=== PATIENT | male | born 1960 | race Caucasian/White ===

== ENCOUNTER 2021-01-12 09:44 | Emergency (ER) | payer OTHER ==
--- NOTE | 2021-01-12 10:49 | EDM.PDOC ---
ED HPI GENERAL MEDICAL PROBLEM - General Chief Complaint: ENT Problem Stated Complaint: [id number] RIGHT EAR PLUGGED Time Seen by Provider: 01/12/21 10:47 Source of Information: Reports: Patient History Limitations: Reports: No Limitations - History of Present Illness INITIAL COMMENTS - FREE TEXT/NARRATIVE: 60 y/o M c/o plugged ears for several days. The pt is [place] and began feeling like his ears were plugged adn then developed pn in his R ear today. He denies fever, cough, chills, cp, db, difficulty swallowing, neck pn, abd pn, extremity pn, drugs, etoh. Right Ear Pain Score (Numeric/FACES): 2 Past Medical History - Past Health History Medical/Surgical History: Denies Medical/Surgical History Social & Family History - Family History Family Medical History: No Pertinent Family History - Tobacco Use Tobacco Use Status *Q: Never Tobacco User Second Hand Smoke Exposure: No - Caffeine Use Caffeine Use: Reports: Coffee - Recreational Drug Use Recreational Drug Use: No ED ROS ENT - Review of Systems Review Of Systems: Comprehensive ROS is negative, except as noted in HPI. ED EXAM, ENT - Physical Exam Exam: See Below Exam Limited By: No Limitations General Appearance: Alert, WD/WN, No Apparent Distress Eye Exam: Bilateral Eye: PERRL Ears: TM Obscured by Cerumen (obscured by cerumen bilaterally) Nose: Normal Inspection, Normal Mucousa, No Blood Mouth/Throat: Normal Inspection, Normal Gums, Normal Lips, Normal Oropharynx, Normal Teeth Head: Atraumatic, Normocephalic Neck: Supple, Non-Tender Respiratory/Chest: No Respiratory Distress, Lungs Clear, Normal Breath Sounds Cardiovascular: Normal Peripheral Pulses, Regular Rate, Rhythm Course - Vital Signs Last Recorded V/S: Last Vital Signs Temp 98.3 F 01/12/21 09:48 Pulse 78 01/12/21 09:48 Resp 16 01/12/21 09:48 BP 155/91 H 01/12/21 09:48 Pulse Ox 94 L 01/12/21 09:48 - Re-Assessments/Exams Free Text/Narrative Re-Assessment/Exam: 01/12/21 11:08 The pts ears were irrigated with half ns half hydrogen peroxide. Copious amounts of cerumen were extracted. The pt feels relief in symptoms and his TMs appear normal. The R ear canal is very irritated after the procedure. I have instructed the pt to avoid ear plugs for the next week until his ear canal heals up. Departure - Departure Time of Disposition: 11:10 Disposition: Home, Self-Care 01 Condition: Good Clinical Impression: Cerumen impaction Qualifiers: Laterality: bilateral Qualified Code(s): H61.23 - Impacted cerumen, bilateral - Discharge Information *PRESCRIPTION DRUG MONITORING PROGRAM REVIEWED*: Not Applicable *COPY OF PRESCRIPTION DRUG MONITORING REPORT IN PATIENT MJ: Not Applicable Instructions: Earwax Buildup, Adult Forms: ED Department Discharge Additional Instructions: Use tylenol or motrin for pain as needed. After your ear canal heals up consider using Debrox or mineral oil drops in your ear a few times a month to prevent impaction for recurring. If any new symptoms or concerns develop contact your primary care facility or return to the ER. Sepsis Event Note (ED) - Focused Exam Vital Signs: Vital Signs Temp Pulse Resp BP Pulse Ox 01/12/21 09:48 98.3 F 78 16 155/91 H 94 L
== END 2021-01-12 11:16 | disposition home or self-care (01) ==
LOC: DL.ED 09:44
DX: H61.23 Impacted cerumen, bilateral (principal)
CPT/HCPCS: 69209; 69210; 99282-25